=== PATIENT | female | born 1935 | race Caucasian/White ===

== ENCOUNTER 2024-06-06 08:19 | Day surgery (SDC) | payer OTHER, SELFPAY ==
[2024-05-27 12:33] VITALS: BMI 26.7
[2024-06-06 08:35] VITALS: BP 153/74; PULSE 80; RESP 18; TEMP 36.6; O2SAT 94; BMI 26.7
[2024-06-06] MEDS: LACTATED RINGERS 1,000 ML 42 ML IV (09:04)
--- NOTE | 2024-06-06 09:44 | PM.PREOP ---
Pre-operative Note COVID-19 COVID-19 status: Not tested Interval Note History & Physical reviewed/Exam performed by Physician: Yes Changes to H&P: No
[2024-06-06] MEDS: CEFAZOLIN 2 GM/100 ML PREMIX 100 ML IV (10:08)
--- NOTE | 2024-06-06 10:29 | SUR.OPER ---
Lithotomy on padded OR bed, head on pillow, arms secured on padded arm boards at <90 degrees abduction. Legs secured in padded yellow fins stirrups.
[2024-06-06] MEDS: BUPIVACAINE 0.25% (PF) 30 ML, EPINEPHrine 0.15 MG INJ (10:32)
[2024-06-06 11:50] VITALS: BP 146/70; PULSE 72; RESP 16; TEMP 36.1; O2SAT 94
[2024-06-06 11:55] VITALS: BP 104/85; PULSE 70; RESP 19; TEMP 36.2; O2SAT 95
--- NOTE | 2024-06-06 11:59 | PM.GYNOP.1 ---
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 Patient has tried use of vaginal pessaries without benefit and she presents today with her 2 daughters, Kendra and Amber, in order to discuss other options for management of her prolapse. Patient denies any VALENTINO symptoms but does have difficulty emptying her bladder fully when the prolapse is prominent. Patient has had 4 vaginal births. She is not sexually active and has progressive dementia but at present is still very aware of her prolapse and it causes her significant concern/discomfort. We had an extended discussion regarding the nature of pelvic organ prolapse and specifically the type of prolapse at the patient has as well as options for treatment. Patient has attempted use of pessaries previously with no significant benefit and a great deal of aggravation. After our discussion patient and her daughters want to proceed with colpocleisis. Written information provided regarding colpocleisis as well as expectations prior to around the time of and after surgery. She presents today for her scheduled surgery. Surgeon: Gabino Coley Anesthesia Type: General Operative Notes Findings: Atrophic vaginal changes with stage III cystocele and stage 2-3 vaginal cuff prolapse following hysterectomy Closure Type: primary Specimen(s): none Estimated blood loss (mL): 75 Blood products transfused: none Procedure in detail: With the patient under satisfactory general endotracheal anesthesia in the modified dorsal lithotomy position, the vagina, perineum, and lower abdominal wall were prepped and draped in the usual manner for colpocleisis. A pre-surgical safety time-out was then taken in accordance with [facility] OR protocols. A short weighted speculum was placed in the vagina and the vaginal cuff identified visually. The vaginal cuff was grasped with 2 T clamps and mobilized downward. The area of mucosal incision anteriorly starting 2 cm distal to the vaginal cuff scar, 3 cm in width, and extending distal to 4 cm from the hymeneal ring was made with marking pen. Posteriorly a similar rectangle was marked from 2 cm distal to the vaginal cuff posteriorly, 3 cm in width and extending to within 4 cm of the posterior hymenal ring. Vaginal mucosa both anterior and posterior which was to be excised was infiltrated with 0.25% Marcaine with epinephrine. The mucosa both anterior and posterior was excised with sharp and blunt dissection. The most cephalic edges of the mucosa were then brought together with 2-0 Vicryl interrupted. The denuded anterior and posterior tissues were then brought together with 2-0 Vicryl using [id number] stitches at consecutive levels followed by approximation of the lateral mucosa with 2-0 Vicryl interrupted. Five layers of [id number] stitches and lateral interrupted were used to bring the denuded areas of anterior and posterior tissues together in the midline. The distal most vaginal mucosa was then brought together with 2-0 Vicryl interrupted, thus completing the performance of the colpocleisis. A isaac-shaped incision of the skin overlying the perineal body up into the distal most vagina was made with monopolar cutting and the mucosa excised in the usual manner. Sharp and blunt dissection was used to expose the distal levators on both sides and 0 Vicryl interrupted were used to approximate the distal levators. Additional 2-0 Vicryl stitches were used to bring the introitus together in midline and substance of the perineal body was also plicated in the midline with 2-0 Vicryl interrupted. The vaginal mucosa was then brought together with 2-0 Vicryl and a running interlocking stitch all the way down to the perineal body. Case was then completed and the patient awakened from general anesthesia. She was then transferred to the PACU for a period of observation and recovery having tolerated procedure well. Complications: none Complications: none Post-operative Condition: stable Disposition: PACU Plan for aftercare: Routine postoperative care with follow-up planned for 2 weeks postop
[2024-06-06 12:02] VITALS: BP 125/67; PULSE 68; RESP 17; TEMP 36.2; O2SAT 95
[2024-06-06 12:08] VITALS: BP 119/63; PULSE 64; RESP 17; TEMP 36.2; O2SAT 95
== END 2024-06-06 12:31 | disposition home or self-care (01) ==
PROVIDERS: PCP Nurse Practitioner Family; Referring Provider Obstetrics & Gynecology; Visit Provider Obstetrics & Gynecology
PROC: (CPT 57120; principal; 2024-06-06 09:45)
DX: N99.3 Prolapse of vaginal vault after hysterectomy (principal); N95.2 Postmenopausal atrophic vaginitis
CPT/HCPCS: 57120; J0171; J0690; J1100; J2405; J2704; J3010